=== PATIENT | female | born 1940 | race Caucasian/White ===

== ENCOUNTER → 2016-08-07 | Outpatient (CLI) | payer BC ==
[2014-09-01 08:50] VITALS: BP 179/91
[~2016-08-07] MED LIST: AMLO5TAB2 PO; CHOL500050 PO; EZET10TA3 PO; LEVO50TA5 PO; LOSA100T6 PO; OMEP20CA9 PO; SERT50TA8 PO; SIMV80TA3 PO; VITAMIN B12 INJ
--- NOTE | 2016-08-07 13:41 | RAD ---
DATE: 08/07/2016 EXAM: DIGITAL SCREEN LT W/CAD HISTORY: Screening. The history of right breast malignancy with subsequent mastectomy is noted COMPARISON: One year ago This study was interpreted with the benefit of Computerized Aided Detection (CAD). FINDINGS: Breast Density: FATTY The Breast Parenchyma is primarily fatty replaced. Breast parenchyma level density A.. Routine and implant displacement views of the left breast were obtained. There has not been a significant change in the appearance of the breast compared to the previous exam. IMPRESSION: Benign findings left breast BI-RADS CATEGORY: 2 BENIGN FINDING(S) RECOMMENDED FOLLOW-UP: 12M 12 MONTH FOLLOW-UP PQRS compliance statement: Patient information was entered into a reminder system with a target due date 08/07/2017 for the next mammogram. Mammography is a sensitive method for finding small breast cancers, but it does not detect them all and is not a substitute for careful clinical examination. A negative mammogram does not negate a clinically suspicious finding and should not result in delay in biopsying a clinically suspicious abnormality. "Our facility is accredited by the [employer] Mammography [employer]."
== END | disposition home or self-care (01) ==
LOC: MAMMO 12:45
PROVIDERS: ATTEND Family Medicine
DX: Z12.31 Encounter for screening mammogram for malignant neoplasm of breast (principal); Z85.3 Personal history of malignant neoplasm of breast
CPT/HCPCS: G0202; 77067

== ENCOUNTER → 2016-09-17 | Outpatient (CLI) | payer BC ==
[2014-09-01 08:50] VITALS: BP 179/91
[~2016-09-17] MED LIST changes: +EZET10TA18 PO; -EZET10TA3 PO
--- NOTE | 2016-09-17 09:25 | RAD ---
Indication:Right upper quadrant pain Grayscale images of the abdomen were obtained. Comparison 12/04/2012 Liver:A significant finding is not seen. There is a 1.7 cm mass in the right lobe compatible with a cyst similar to the previous exam. Gallbladder:No cholelithiasis is seen. There are none shadowing masses associated with the gallbladder wall compatible with small polyps. There is no suggested intrahepatic bile duct dilatation. The common bile duct diameter of approximately 2 mm is normal Spleen:Normal Pancreas:As visualized normal Kidneys:Somewhat small otherwise unremarkable. Abdominal aorta and IVC:Normal Ancillary findings:None Impression:Gallbladder polyps. Hepatic cyst. Somewhat small kidneys. No acute finding seen
== END | disposition home or self-care (01) ==
LOC: US 07:27
PROVIDERS: ATTEND Family Medicine
DX: K82.4 Cholesterolosis of gallbladder (principal); K76.89 Other specified diseases of liver
CPT/HCPCS: 76700

== ENCOUNTER → 2017-12-19 | Outpatient (CLI) | payer BC ==
[2014-09-01 08:50] VITALS: BP 179/91
[~2017-12-19] MED LIST changes: -AMLO5TAB2 PO; +AMLO5TAB7 PO; -LOSA100T6 PO; +LOSA100T7 PO; -SIMV80TA3 PO; +SIMV80TA7 PO
--- NOTE | 2017-12-24 14:01 | RAD ---
DATE: 12/19/2017 EXAM: DIGITAL SCREEN LT W/CAD HISTORY: Right breast cancer COMPARISON: 08/07/2016 This study was interpreted with the benefit of Computerized Aided Detection (CAD). Breast Density: FATTY The breast parenchyma is primarily fatty replaced. Breast parenchyma level density A. FINDINGS: Routine and implant exclusion views of the left breast were obtained. The breast implant appears unchanged. There is capsular calcification. A few faint breast calcifications are again noted anteriorly. No mass or suspicious microcalcifications have developed. IMPRESSION: Stable left mammograms without evidence of malignancy. BI-RADS CATEGORY: 2 BENIGN FINDING(S) RECOMMENDED FOLLOW-UP: 12M 12 MONTH FOLLOW-UP PQRS compliance statement: Patient information was entered into a reminder system with a target due date for the next mammogram. Mammography is a sensitive method for finding small breast cancers, but it does not detect them all and is not a substitute for careful clinical examination. A negative mammogram does not negate a clinically suspicious finding and should not result in delay in biopsying a clinically suspicious abnormality. "Our facility is accredited by the [employer] Mammography [employer]."
== END | disposition home or self-care (01) ==
LOC: MAMMO 12:49
PROVIDERS: ATTEND Family Medicine
DX: Z12.31 Encounter for screening mammogram for malignant neoplasm of breast (principal); Z85.3 Personal history of malignant neoplasm of breast
CPT/HCPCS: 77067

== ENCOUNTER → 2018-10-31 | Outpatient (CLI) | payer BC ==
[2014-09-01 08:50] VITALS: BP 179/91
[~2018-10-31] MED LIST changes: +AMLO5TAB10 PO; -AMLO5TAB7 PO; +LOSA100T14 PO; -LOSA100T7 PO; +OMEP20CA10 PO; -OMEP20CA9 PO; +SIMV80TA17 PO; -SIMV80TA7 PO
--- NOTE | 2018-10-31 16:19 | KCIC ---
EXAM: AP, bilateral oblique, lateral and open-mouth odontoid views of the cervical spine DATE: 10/31/2018 12:00 AM CLINICAL HISTORY: Neck pain, into shoulder blades COMPARISON: None available. FINDINGS: On the lateral view, the cervical spine is imaged from the skull base to C6. Vertebral body heights are preserved. Moderate C3-4, C4-5, moderate to severe C5-6 C6-7 and C7-T1 disc height loss. Anterior plate osteophytes are seen at multiple levels. Straightening of the normal cervical lordosis. No spondylolisthesis. Of the bilateral oblique views, moderate bilateral C3-4, C4-5, C5-6 neural foraminal narrowing. Normal predental space. No significant prevertebral soft tissue swelling. IMPRESSION: 1. Multilevel spondylosis as above 2. Negative acute fracture or subluxation. Electronically signed by: Nadeem Bolanos MD (10/31/2018 4:16 PM) [facility]
--- NOTE | 2018-10-31 16:21 | KCIC ---
Exam: Thoracic spine Date: 10/31/2018 12:00 AM CLINICAL HISTORY: THORACIC PAIN, Neck pain into shoulder blades, recent weeks COMPARISON: None available. FINDINGS: AP and lateral/swimmers views of the thoracic spine submitted. There is mild superimposed artifact at the cervicothoracic junction on the lateral view per technique. Mild multilevel disc height loss particularly in the mid thoracic spine with small anterior endplate osteophytes. Vertebral body heights are preserved-negative compression fracture. Straightening of the normal thoracic kyphosis. No spondylolisthesis. Negative focal paraspinal line deviation/hematoma. Calcified left breast implant is partially profiled. IMPRESSION: 1. Multilevel spondylosis as above 2. Negative acute fracture or subluxation. Electronically signed by: Nadeem Bolanos MD (10/31/2018 4:18 PM) [facility]
== END | disposition home or self-care (01) ==
LOC: KCIC 11:25
PROVIDERS: ATTEND Family Medicine
DX: M47.812 Spondylosis without myelopathy or radiculopathy, cervical region (principal); M48.02 Spinal stenosis, cervical region; M25.78 Osteophyte, vertebrae; M40.294 Other kyphosis, thoracic region; Z98.82 Breast implant status
CPT/HCPCS: 72050; 72072

== ENCOUNTER → 2019-03-16 | Outpatient (CLI) | payer BC ==
[2014-09-01 08:50] VITALS: BP 179/91
[~2019-03-16] MED LIST changes: -EZET10TA18 PO; +EZET10TA20 PO; +OMEP-229 PO; -OMEP20CA10 PO
--- NOTE | 2019-03-17 11:23 | RAD ---
DATE: 02/17/2019 EXAM: DIGITAL SCREEN LT W/CAD HISTORY: Routine screening. Right mastectomy. COMPARISON: 05/19/2013, 07/05/2014, 07/21/2015, 08/07/2016, 12/19/2017 This study was interpreted with the benefit of Computerized Aided Detection (CAD). Breast Density: FATTY The breast parenchyma is primarily fatty replaced. Breast parenchyma level density A. FINDINGS: Left breast implant is present with stable contour. No mass, calcification, or distortion in the interval. Attempts at obtaining optimal compression first exam reportedly were limited due to the firmness of the implant. IMPRESSION: Stable BI-RADS CATEGORY: 1 NEGATIVE RECOMMENDED FOLLOW-UP: 12M 12 MONTH FOLLOW-UP PQRS compliance statement: Patient information was entered into a reminder system with a target due date for the next mammogram. Mammography is a sensitive method for finding small breast cancers, but it does not detect them all and is not a substitute for careful clinical examination. A negative mammogram does not negate a clinically suspicious finding and should not result in delay in biopsying a clinically suspicious abnormality. "Our facility is accredited by the [employer] Mammography Program."
== END | disposition home or self-care (01) ==
LOC: MAMMO 09:33
PROVIDERS: ATTEND Family Medicine
DX: Z12.31 Encounter for screening mammogram for malignant neoplasm of breast (principal); Z90.11 Acquired absence of right breast and nipple; Z98.82 Breast implant status
CPT/HCPCS: 77067

== ENCOUNTER → 2019-05-14 | Outpatient (CLI) | payer BC ==
[2014-09-01 08:50] VITALS: BP 179/91
[~2019-05-14] MED LIST changes: -OMEP-229 PO; +OMEP20CA16 PO
--- NOTE | 2019-05-14 17:04 | KCIC ---
CHEST PA LATERAL History: Aspiration, cough Comparison: None available at this time. Findings: Frontal and lateral views of the chest were obtained. The cardiomediastinal silhouette is normal. Pulmonary vasculature is normal. The lungs are clear. No pleural effusion or pneumothorax is seen. There is no acute bone abnormality. Left-sided calcified breast implant is present. IMPRESSION: No acute cardiopulmonary process. Electronically signed by: Bayron Alvares MD (05/14/2019 5:01 PM) [id number]
== END ==
LOC: KCIC 13:47
PROVIDERS: ATTEND Family Medicine
DX: T17.998A Other foreign object in respiratory tract, part unspecified causing other injury, initial encounter (principal); X58.XXXA Exposure to other specified factors, initial encounter; Y93.89 Activity, other specified; Y92.89 Other specified places as the place of occurrence of the external cause; Y99.8 Other external cause status
CPT/HCPCS: 71046

== ENCOUNTER → 2019-11-10 | Outpatient (CLI) | payer BC ==
[2014-09-01 08:50] VITALS: BP 179/91
--- NOTE | 2019-11-10 12:31 | KCIC ---
EXAM: Bilateral knees, standing view; bilateral knees, lateral and oblique views. HISTORY: Pain. COMPARISON: None. FINDINGS: 3 views of both knees are obtained. There is severe right lateral compartment joint space narrowing with subchondral sclerosis and spurring. There is associated right genu valgus. There is also right patellofemoral compartment spurring. There are small right greater than left knee effusions. There is no fracture, dislocation or subluxation. IMPRESSION: 1. 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 2. Small right greater than left knee effusions. Electronically signed by: Corina Newton MD (11/10/2019 12:28 PM) [facility]
--- NOTE | 2019-11-10 12:32 | KCIC ---
EXAM: Bilateral hips and pelvis, 4 views. HISTORY: Pain. COMPARISON: None. FINDINGS: 2 views of both hips are obtained. There is no fracture, dislocation or subluxation. The femoral heads are normal in configuration and seated appropriately. IMPRESSION: No acute osseous finding. Electronically signed by: Corina Newton MD (11/10/2019 12:29 PM) [facility]
== END | disposition home or self-care (01) ==
LOC: KCIC 10:39
PROVIDERS: ATTEND Family Medicine
DX: M17.11 Unilateral primary osteoarthritis, right knee (principal); M21.061 Valgus deformity, not elsewhere classified, right knee; M25.462 Effusion, left knee; M25.461 Effusion, right knee; M25.551 Pain in right hip; M25.552 Pain in left hip
CPT/HCPCS: 73521; 73562; 73565

== ENCOUNTER → 2020-05-12 | Outpatient (CLI) | payer BC ==
[2014-09-01 08:50] VITALS: BP 179/91
[~2020-05-12] MED LIST changes: +AMLO-186 PO; -AMLO5TAB10 PO; +SERT-267 PO; -SERT50TA8 PO
--- NOTE | 2020-05-12 15:50 | KCIC ---
EXAMINATION: CT HEAD/BRAIN WO (CT HEAD WITHOUT IV CONTRAST) CLINICAL HISTORY: Hallucinations, visual disturbances, confusion, forgetful. TECHNIQUE: Serial axial images without IV contrast were obtained from the vertex to the foramen magnu m. CT Dose Reduction Employed: One or more of the following individualized dose reduction techniques wer e utilized for this examination: 1. Automated exposure control 2. Adjustment of the mA and/or kV ac cording to patient size 3. Use of iterative reconstruction technique. COMPARISON: None FINDINGS: Acute Change: No evidence of an acute infarct or other acute parenchymal process. Hemorrhage: No evidence of acute intracranial hemorrhage. Mass Lesion/Mass Effect: No evidence of intracranial mass or extraaxial fluid collection. No signific ant mass effect. Chronic Change: Scattered patchy foci of hypoattenuation in the supratentorial white matter, nonspeci fic but likely represents mild microvascular ischemia. Atherosclerotic calcification of the bilateral carotid siphons. Parenchyma: Mild to moderate generalized volume loss. Parenchyma otherwise within normal limits for a ge. Ventricles: Ventricular enlargement concordant with degree of parenchymal volume loss. Paranasal Sinuses and Skull Base: Visualized paranasal sinuses clear. Visualized skull base and soft tissues unremarkable. IMPRESSION: No evidence of acute intracranial abnormality. Electronically signed by: Yovani Mcclure DO (05/12/2020 3:47 PM) [id number]
== END ==
LOC: KCIC CT 15:04
PROVIDERS: ATTEND Family Medicine
DX: R44.1 Visual hallucinations (principal); H53.9 Unspecified visual disturbance
CPT/HCPCS: 70450

== ENCOUNTER → 2020-08-22 | Outpatient (CLI) | payer BC ==
[2014-09-01 08:50] VITALS: BP 179/91
--- NOTE | 2020-08-22 12:04 | KCIC ---
AP and Lateral Views of the Chest 08/22/2020 11:00 AM Indication: Reason: COUGH, EVALUATE FOR TUBERCULOSIS / Spl. Instructions: / History: Comparison: 2.27.20 Findings: There is no focal consolidation or infiltrate identified. Calcified left breast implant not ed. Heart size is normal. The cardiomediastinal silhouette is within normal limits. There is no evide nce of pneumothorax or pleural effusion. No acute osseous abnormalities are identified. Impression: No evidence of acute cardiopulmonary process. Electronically signed by: Mahendra Berger MD (08/22/2020 12:02 PM) [id number]
== END ==
LOC: KCIC 10:50
PROVIDERS: ATTEND Family Medicine
DX: Z11.1 Encounter for screening for respiratory tuberculosis (principal); R05 Cough
CPT/HCPCS: 71046